=== PATIENT | female | born 1935 | race Caucasian/White ===

== ENCOUNTER 2017-10-22 10:11 | Outpatient (CLI) | payer MEDICARE, OTHER | END 2017-10-22 10:12 | disposition home or self-care (01) | LOC: BICMAMMO 10:11 | PROVIDERS: ATTEND Family Medicine | DX: Z12.31 Encounter for screening mammogram for malignant neoplasm of breast (principal); Z85.3 Personal history of malignant neoplasm of breast | CPT/HCPCS: 77063; 77067 ==

== ENCOUNTER 2018-06-12 11:31 | Day surgery (SDC) | payer MEDICARE, OTHER ==
[2018-06-12] MEDS ORDERED: Cyclopentolate 1% Opth Drop 2 ML BOT FS SCH (11:56)
[2018-06-12] MEDS ORDERED: Fluorouracil 100 MG, Enoxaparin Sodium 25 MG, EPINEPHrine 0.3 MG, Dextrose 50% 3 ML in ... IVPB SCH (11:56)
[2018-06-12] MEDS ORDERED: Phenylephrine 2.5% Ophth Soln 5 ML BOT FS SCH (11:56)
[2018-06-12] MEDS ORDERED: Cyclopentolate 1% Opth Drop 2 ML BOT ONE ×2 (12:01→12:09)
[2018-06-12] MEDS ORDERED: Phenylephrine 2.5% Ophth Soln 5 ML BOT ONE (12:01)
[2018-06-12] MEDS ORDERED: Midazolam HCl 2 mg/2 ml Vial ONE (12:52)
[2018-06-12] MEDS ORDERED: Fentanyl 100 MCG/2 ML VIAL ONE (12:52)
--- NOTE | 2018-06-12 15:07 | OP ---
DATE OF PROCEDURE: 06/12/2018 PREOPERATIVE DIAGNOSIS: Rhegmatogenous retinal detachment, left eye. POSTOPERATIVE DIAGNOSIS: Rhegmatogenous retinal detachment, left eye. PROCEDURE: Pars plana vitrectomy and retinal detachment repair, left eye. SURGEON: Enzo Maldonado MD ANESTHESIA: Local with monitored anesthesia care. PROCEDURE IN DETAIL: The patient was identified in the preoperative holding area. Appropriate infor med consent for the planned surgical procedure on the left eye had been obtained. The patient was tr ansported to the operative suite where appropriate cardiopulmonary monitoring established. Local ane sthesia was obtained using retrobulbar and modified Van Lint lid block using 50:50 mixture of 2% lido theodora, 0.75% bupivacaine. The patient was prepped and draped in the usual sterile manner for ophthal paloma surgery on the left eye. Lid speculum was placed in the left eye. The 25-gauge trocars were mary anne dontrell in conjunctiva and sclera supratemporally, inferotemporally, and supranasally. Infusion line was placed inferotemporally. Light pipe and vitreous cutter were inserted into the eye. Core vitrectom y was performed. Attention was turned to the tear at 12 o'clock. Vitreous was dissected away. Post erior drain retinotomy was created. Complete air fluid exchange was performed with 10 minutes being allowed for fluid to drain posteriorly. A 360 laser was placed using endolaser delivery device. A 2 8% sulfur hexafluoride gas was infused into the eye. Trocars were removed. Eye was noted to retain pressure well. The patient was positioned right side down, advised to call for pain not relieved by Tylenol, and follow up in the morning with Dr. Maldonado.
[2018-06-12] MEDS ORDERED: Maxitrol 0.1% Opth Oint 3.5 GM TUBE ONE (15:08)
[2018-06-12] MEDS ORDERED: Triamcinolone 40 MG/ML VIAL ONE (15:08)
[2018-06-12] MEDS ORDERED: CEFAZOLIN 1 GM VIAL ONE (15:08)
[2018-06-12] MEDS ORDERED: Lidocaine 1% PF 5 ML VIAL ONE (15:08)
[2018-06-12] MEDS ORDERED: Lidocaine 2% MPF 10 ML AMP (For Epidural Use) ONE (15:08)
[2018-06-12] MEDS ORDERED: PROPOFOL 200 MG/20 ML VIAL ONE (15:08)
[2018-06-12] MEDS ORDERED: Bupivacaine 0.75% 10 ML AMP ONE (15:08)
== END 2018-06-12 15:00 | disposition home or self-care (01) ==
LOC: SDC 11:31
PROVIDERS: ATTEND Ophthalmology Retina Specialist
PROC: 08T53ZZ Resection of Left Vitreous, Percutaneous Approach (ICD-10-PCS; principal; 2018-06-12)
PROC: 08QF3ZZ Repair Left Retina, Percutaneous Approach (ICD-10-PCS; 2018-06-12)
DX: H33.012 Retinal detachment with single break, left eye (principal); Z88.0 Allergy status to penicillin
CPT/HCPCS: 67025; J0171; J0690; J1650; J2001; J2250; J2704; J3010; J3301; J3490; J9190

== ENCOUNTER 2018-11-30 10:39 | Outpatient (CLI) | payer MEDICARE ==
--- NOTE | 2018-11-30 13:00 | RAD ---
JUAN CARLOS TWO VIEWS: History: J20.9, cough. Comparison: 03-15-15 FINDINGS: Lungs are clear. No pneumothorax or effusion. Cardiac silhouette and mediastinal contours within norm al limits. Moderate narrowing of the lower thoracic spine disc spaces. IMPRESSION: No acute intrathoracic abnormality. POS: [facility]
== END 2018-11-30 10:40 | disposition home or self-care (01) ==
LOC: SCSRAD 10:39
PROVIDERS: ATTEND Family Medicine
DX: J20.9 Acute bronchitis, unspecified (principal)
CPT/HCPCS: 71046

== ENCOUNTER 2019-05-13 12:33 | Outpatient (CLI) | payer MEDICARE ==
--- NOTE | 2019-05-13 12:51 | RAD ---
2 views of the chest: 05/13/2019 COMPARISON: 11/30/2018 HISTORY: Cough and shortness of breath FINDINGS: Stable increased linear interstitial density. Postoperative clips overlie the right axillar y region. Descending thoracic aorta demonstrates stable tortuosity. There is no pneumothorax or pleural fluid and no focal consolidation or alveolar edema. IMPRESSION: No acute findings.
== END 2019-05-13 12:34 | disposition home or self-care (01) ==
LOC: SCSRAD 12:33
PROVIDERS: ATTEND Family Medicine
DX: R05 Cough (principal)
CPT/HCPCS: 71046